=== PATIENT | male | born 1990 | race Caucasian/White ===

== ENCOUNTER 2024-08-01 11:12 | Inpatient (IN) | payer OTHER ==
[2024-08-01 11:52] VITALS: BMI 20.7
[2024-08-01] MEDS ORDERED: DICYCLOMINE HCL 10 MG CAPSULE PO PRN (13:35)
[2024-08-01] MEDS ORDERED: BENZONATATE 200 MG CAPSULE PO PRN (13:35)
[2024-08-01] MEDS ORDERED: MAGNESIUM HYDROX 2400MG/30ML ORAL SUSPENSION 30 ML CUP PO PRN (13:35)
[2024-08-01] MEDS ORDERED: IBUPROFEN 400 MG TABLET (FP) PO PRN (13:35)
[2024-08-01] MEDS ORDERED: IBUPROFEN 600 MG TABLET (FP) PO PRN (13:35)
[2024-08-01] MEDS ORDERED: LOPERAMIDE HCL 2 MG CAPSULE PO PRN (13:35)
[2024-08-01] MEDS ORDERED: ONDANSETRON *ODT* 4 MG TABLET SL PRN (13:35)
[2024-08-01] MEDS ORDERED: BENZOCAINE/MENTHOL (CHLORASEPTIC ) LOZENGE MM PRN (13:35)
[2024-08-01] MEDS ORDERED: NALOXONE (NARCAN) HCL 4 MG/0.1 ML SPRAY NS PRN (13:35)
[2024-08-01] MEDS ORDERED: POLYETHYLENE GLYCOL (HEALTHYLAX) 3350 17 GM PACKET PO PRN (13:35)
[2024-08-01] MEDS ORDERED: MAG HYDROX/AL HYDROX/SIMETH 30 ML UNIT-DOSE CUP PO PRN (13:35)
[2024-08-01] MEDS ORDERED: guaiFENesin 600 MG TABLET.ER (FP) PO PRN (13:35)
[2024-08-01] MEDS ORDERED: METHOCARBAMOL 500 MG TABLET PO PRN (13:35)
[2024-08-01] MEDS ORDERED: BISMUTH SUBSALICYLATE 524 MG/30 ML PO PRN (13:35)
[2024-08-01] MEDS ORDERED: hydrOXYzine PAMOATE 25 MG CAPSULE (FP) PO PRN (13:35)
[2024-08-01] MEDS ORDERED: ACETAMINOPHEN 325 MG TABLET (FP) PO PRN (13:35)
[2024-08-01] MEDS ORDERED: diazePAM 5 MG TABLET PO PRN (14:02)
[2024-08-01] MEDS ORDERED: cloNIDine HCL 0.1 MG TABLET ONE (14:51)
[2024-08-01] MEDS ORDERED: methaDONE HCL 10 MG TABLET (FOR DETOX USE ONLY) ONE (14:51)
[2024-08-01] MEDS ORDERED: NICOTINE 21 MG/24 HOURS TOPICAL PATCH ONE (14:51)
[2024-08-01] MEDS ORDERED: BUPRENORPHINE/NALOXONE 0.5 MG/0.125 MG FILM ONE (14:52)
[2024-08-01] MEDS: methaDONE HCL 10 MG TABLET (FOR DETOX USE ONLY) PO ONE (14:59)
[2024-08-01] MEDS: cloNIDine HCL 0.1 MG TABLET PO SCH (14:59)
[2024-08-01] MEDS: BUPRENORPHINE/NALOXONE 0.5 MG/0.125 MG FILM SL ONE ×2 (15:01→22:57)
[2024-08-01] MEDS: NICOTINE 21 MG/24 HOURS TOPICAL PATCH TD SCH (15:01)
[2024-08-01] MEDS ORDERED: ARIPiprazole 5 MG TABLET PO ONE (16:20)
[2024-08-01] MEDS: diazePAM 5 MG TABLET PO SCH (17:37)
[2024-08-01] MEDS: ARIPiprazole 5 MG TABLET PO ONE (17:49)
[2024-08-01] MEDS ORDERED: MELATONIN 5 MG TABLETS PO SCH (22:00)
[2024-08-01] MEDS ORDERED: SUVOREXANT 10 MG TABLET PO PRN (22:00)
[2024-08-01] MEDS: THIAMINE 100 MG TABLET PO SCH (22:54)
[2024-08-01] MEDS ORDERED: cloNIDine HCL 0.1 MG TABLET PO PRN (22:54)
[2024-08-02] MEDS: BUPRENORPHINE/NALOXONE 0.5 MG/0.125 MG FILM SL SCH (10:41)
[2024-08-02] MEDS: ARIPiprazole 5 MG TABLET PO SCH (10:41)
[2024-08-02] MEDS: PRENATAL VITAMINS W/ FOLIC ACID TABLET (FP) PO SCH (10:44)
[2024-08-02 11:16] LABS: HEMATOCRIT 43.5 % (35.4-49); HEMOGLOBIN 15.1 GM/dL (11.7-16.9); MCH 31.7 pg (25.7-33.7); MCHC 34.7 g/dl (32.0-35.9); MEAN CELL VOLUME 91.3 fl (80-96); MEAN PLT VOLUME 10.8 fl (7.5-11.1); PLATELET COUNT 146 10^3/uL (134-434); RBC 4.77 M/mm3 (4.00-5.60); RDW 14.2 % (11.9-15.9); WHITE BLOOD COUNT 6.9 K/mm3 (4.0-10.0)
[2024-08-02 11:31] LABS: CALCIUM 8.9 mg/dL (8.5-10.1)
[2024-08-02 11:32] LABS: ALBUMIN 3.6 g/dl (3.4-5.0); BLOOD UREA NITROGEN 14.8 mg/dL (7-18)
[2024-08-02 11:36] LABS: CREATININE 0.9 mg/dL (0.55-1.3)
[2024-08-02 11:37] LABS: BILIRUBIN,TOTAL 0.5 mg/dL (0.2-1); TOT PROT 6.4 g/dl (6.4-8.2)
[2024-08-03] MEDS: diazePAM 5 MG TABLET PO SCH (05:44)
[2024-08-03] MEDS: methaDONE HCL 10 MG TABLET (FOR DETOX USE ONLY) PO ONE (09:23)
[2024-08-03] MEDS: BUPRENORPHINE/NALOXONE 2 MG/0.5 MG FILM PACKET SL SCH (09:23)
[2024-08-04] MEDS: diazePAM 5 MG TABLET PO SCH (05:59)
[2024-08-04] MEDS: BUPRENORPHINE/NALOXONE 4 MG/1 MG FILM PACKET SL SCH (09:08)
[2024-08-05] MEDS: diazePAM 5 MG TABLET PO ONE (05:45)
[2024-08-05] MEDS: methaDONE HCL 10 MG TABLET (FOR DETOX USE ONLY) PO ONE (09:32)
[2024-08-05] MEDS: BUPRENORPHINE/NALOXONE 8 MG/2 MG FILM PACKET SL SCH (09:33)
[2024-08-05 23:48] VITALS: RESP 16
[2024-08-06 07:03] VITALS: BP 110/70; PULSE 74; TEMP 97.8
[2024-08-06] MEDS: BUPRENORPHINE/NALOXONE 8 MG/2 MG FILM PACKET SL SCH (09:05)
[2024-08-06] MEDS: NALOXONE (NYS OPIOID OVERDOSE PROGRAM) 4 MG/0.1 ML SPRAY NS SCH (09:11)
== END 2024-08-06 09:09 | disposition home or self-care (01) | DRG 773 ==
LOC: YASAS 11:12 → Y6N 13:38
PROVIDERS: ADMIT Allergy & Immunology; ATTEND Surgery
PROC: HZ2ZZZZ Detoxification Services for Substance Abuse Treatment (ICD-10-PCS; principal; 2024-08-01)
DX: F11.23 Opioid dependence with withdrawal (principal); F10.230 Alcohol dependence with withdrawal, uncomplicated; F14.20 Cocaine dependence, uncomplicated; F13.20 Sedative, hypnotic or anxiolytic dependence, uncomplicated; F12.20 Cannabis dependence, uncomplicated; F17.210 Nicotine dependence, cigarettes, uncomplicated; F20.9 Schizophrenia, unspecified; F19.282 Other psychoactive substance dependence with psychoactive substance-induced sleep disorder; F19.24 Other psychoactive substance dependence with psychoactive substance-induced mood disorder
CPT/HCPCS: 36415; 80053; 80305; 80307; 85027; 86780; 86803; 87522; 93005; 93010